=== PATIENT | male | born 2000 | race Two or more races ===

== ENCOUNTER 2020-06-05 13:51 | Emergency (ER) | payer MEDICAID ==
[~2020-06-05] VITALS: Ht 182.9 cm; Wt 102.1 kg
[2020-06-05] MEDS ORDERED: ACETAMINOPHEN 500 MG TAB PO ONE (14:45)
[2020-06-05] MEDS ORDERED: SODIUM CHLORIDE 0.9% 1,000 ML IV ONE (14:45)
[2020-06-05 17:14] VITALS: BP 140/83
[2020-06-05] MEDS ORDERED: cefTRIAXone 1GM/50ML D5W 50 ML IV ONE (18:30)
== END 2020-06-05 20:04 | disposition home or self-care (01) ==
LOC: ER 13:51
DX: J18.9 Pneumonia, unspecified organism (principal); R06.02 Shortness of breath; R05 Cough; R50.9 Fever, unspecified; Z20.828 Contact with and (suspected) exposure to other viral communicable diseases
CPT/HCPCS: 36415; 71045; 87426; 87804; 96361; 96365; 99284; C9803; J0696; U0003